=== PATIENT | female | born 1960 | race American Indian/Alaskan Native ===

== ENCOUNTER 2021-11-12 19:41 | Emergency (ER) | payer MEDICARE ==
--- NOTE | 2021-11-12 20:35 | Emergency Department Report ---
ED Psych HPI - General Chief Complaint: Psych Stated Complaint: SI Time Seen by Provider: 11/12/21 20:32 Source: patient, EMS Mode of arrival: Stretcher Limitations: No Limitations - History of Present Illness Initial Comments: Patient is a 61-year-old male who presents emergency room with complaints of suicidal ideations. Patient also complaining of depression. Patient states she has been having thoughts today of killing herself. Patient states her plan was to cut her wrist. Patient states she has attempted overdose in the past with Tylenol. Patient states she had this previously. Patient states she had a long history of depression. Patient states she is taking her medications. Patient denies any physical complaints. Patient denies chest pain. Patient denies shortness of breath. Patient denies abdominal pain. Patient denies fever and chills. Patient denies recent travel. Patient denies recent international travel. Patient denies exposure to the novel coronavirus. Patient denies sick contacts. Patient denies fever and chills. Patient denies cough. Patient denies diarrhea. Patient denies coming in contact with anybody with symptoms of the novel coronavirus. MD Complaint: suicidal ideation, feels depressed -: Sudden Associated Psychiatric Symptoms: depression, suicidal ideation, racing thoughts History of same: Yes Quality: constant Improves With: none Worsens With: none Associated Symptoms: denies other symptoms. denies: confusion, headache, shortness of breath, nausea, vomiting, syncope, insomnia If Self Harm: admits thoughts of, has plan - Related Data Home Medications Medication Instructions Recorded Confirmed Last Taken Metoprolol Tartrate 100 mg PO BID 10/21/14 10/21/14 10/21/14 NIFEdipine [Nifedical Xl] 30 mg PO DAILY 10/21/14 10/21/14 10/21/14 Previous Rx's Medication Instructions Recorded Last Taken Type Ciprofloxacin HCl [Ciprofloxacin 500 mg PO BID 10 Days #20 tab 11/12/21 Unknown Rx TAB] Allergies Allergy/AdvReac Type Severity Reaction Status Date / Time bacitracin Allergy Hives Verified 11/12/21 20:24 [From Neosporin ([id number])] neomycin Allergy Hives Verified 11/12/21 20:24 [From Neosporin ([id number])] polymyxin B Allergy Hives Verified 11/12/21 20:24 [From Neosporin ([id number])] ED Review of Systems ROS: Stated complaint: SI Other details as noted in HPI Constitutional: denies: chills, fever Eyes: denies: eye pain, eye discharge, vision change ENT: denies: ear pain, throat pain Respiratory: denies: cough, shortness of breath, wheezing Cardiovascular: denies: chest pain, palpitations Endocrine: no symptoms reported Gastrointestinal: denies: abdominal pain, nausea, diarrhea Genitourinary: denies: urgency, dysuria, discharge Musculoskeletal: denies: back pain, joint swelling, arthralgia Skin: denies: rash, lesions Neurological: denies: headache, weakness, paresthesias Psychiatric: anxiety, depression, suicidal thoughts Hematological/Lymphatic: denies: easy bleeding, easy bruising ED Past Medical Hx - Past Medical History Previous Medical History?: Yes Hx Hypertension: Yes Hx Arthritis: Yes (general) Hx Asthma: Yes - Surgical History Past Surgical History?: Yes Hx Breast Surgery: Yes (Left) Additional Surgical History: Hysterectomy. Carpal Tunnel. Hernia - Family History Family history: no significant - Social History Smoking Status: Former Smoker Substance Use Type: None - Medications Home Medications: Home Medications Medication Instructions Recorded Confirmed Last Taken Type Metoprolol Tartrate 100 mg PO BID 10/21/14 10/21/14 10/21/14 History NIFEdipine [Nifedical Xl] 30 mg PO DAILY 10/21/14 10/21/14 10/21/14 History Ciprofloxacin HCl [Ciprofloxacin 500 mg PO BID 10 Days #20 tab 11/12/21 Unknown Rx TAB] ED Physical Exam - General Limitations: Physical Limitation General appearance: alert, in no apparent distress - Head Head exam: Present: atraumatic, normocephalic - Eye Eye exam: Present: normal appearance - ENT ENT exam: Present: mucous membranes moist - Neck Neck exam: Present: normal inspection - Respiratory Respiratory exam: Present: normal lung sounds bilaterally. Absent: respiratory distress - Cardiovascular Cardiovascular Exam: Present: regular rate, normal rhythm. Absent: systolic murmur, diastolic murmur, rubs, gallop - GI/Abdominal GI/Abdominal exam: Present: soft, normal bowel sounds - Extremities Exam Extremities exam: Present: normal inspection - Back Exam Back exam: Present: normal inspection - Neurological Exam Neurological exam: Present: alert, oriented X3, CN II-XII intact - Psychiatric Psychiatric exam: Present: depressed, flat affect, suicidal ideation - Skin Skin exam: Present: warm, dry, intact, normal color. Absent: rash ED Course Vital Signs 11/12/21 20:15 Temperature 99 F Pulse Rate 88 Respiratory 18 Rate Blood Pressure 118/72 O2 Sat by Pulse 99 Oximetry - Reevaluation(s) Reevaluation #1: Patient is medically cleared. Patient will remain in the ER as an ER hold until the patient is cleared by our psychiatry team. Patient placed on a ER hold. I discussed all results and clinical findings with patient. I discussed plan of care with patient. Patient agrees with plan of care. 11/12/21 23:50 Patient placed on a 1013 since she still has a plan to hurt herself. 11/13/21 00:03 ED Medical Decision Making - Lab Data Result diagrams: 11/12/21 20:43 11/12/21 20:43 - Medical Decision Making Patient is a 61-year-old female who presents emergency room for suicidal idea tion. Patient states she has had this in the past. Patient has a history of depression. Patient states she was wanting to cut her wrist. Patient placed on a ER hold. Patient had labs done for medical clearance. Patient's labs were essentially unremarkable except for UTI. Patient given injectable Rocephin in the ER. Patient given a prescription for Cipro for discharge. Patient remained in the ER as a ER hold until the patient is cleared from a psychiatric standpoint by our psychiatry team. Patient's final disposition will come from our psychiatry team. - Differential Diagnosis , depression, suicidal ideations Critical care attestation.: If time is entered above; I have spent that time in minutes in the direct care of this critically ill patient, excluding procedure time. ED Disposition Clinical Impression: Suicidal ideations Urinary tract infection Qualifiers: Urinary tract infection type: acute cystitis Hematuria presence: with hematuria Qualified Code(s): N30.01 - Acute cystitis with hematuria Depression Qualifiers: Depression Type: other depression Qualified Code(s): F32.89 - Other specified depressive episodes Disposition: 30 STILL A PATIENT Is pt being admited?: No Does the pt Need Aspirin: No Condition: Stable Instructions: Antibiotic Medicine, Adult, [id number], Urinary Tract Infection, Adult Prescriptions: Ciprofloxacin HCl [Ciprofloxacin TAB] 500 mg PO BID 10 Days #20 tab Referrals: NUZHAT RAY MD [Primary Care Provider] - 2-3 Days Time of Disposition: 23:49
[2021-11-12 21:16] LABS: Basophils % (Auto) 0.4 % (0.0-1.8); Eosinophils # (Auto) 0.1 K/mm3 (0.0-0.4); Eosinophils % (Auto) 1.2 % (0.0-4.3); Hematocrit 33.5 % (30.3-42.9); Lymphocytes # (Auto) 1.9 K/mm3 (1.2-5.4); Mean Corpuscular HGB Conc 33 % (30-34); Mean Corpuscular Volume 96 fl (79-97); Monocytes # (Auto) 0.5 K/mm3 (0.0-0.8); Monocytes % (Auto) 6.1 % (0.0-7.3); Platelet Count 385 K/mm3 (140-440); Red Blood Count 3.47 M/mm3 (3.65-5.03); Red Cell Distribution Width 14.5 % (13.2-15.2)
[2021-11-12 21:33] LABS: BUN/Creatinine Ratio 10; Blood Urea Nitrogen 8 mg/dL (7-17); Calcium 9.1 mg/dL (8.4-10.2); Hemolysis Index 12
[2021-11-12 22:44] LABS: Amphetamine Screen,Urine PRESUMPTIVE NEGATIVE; Benzodiazepines Screen,Urine PRESUMPTIVE NEGATIVE; Cannabinoid Screen,Urine PRESUMPTIVE NEGATIVE; Cocaine Screen,Urine PRESUMPTIVE NEGATIVE; Methadone Screen,Urine PRESUMPTIVE NEGATIVE; Opiate Screen,Urine PRESUMPTIVE NEGATIVE
[2021-11-12 22:46] LABS: Bilirubin,Urine NEG (Negative); Blood,Urine SM (Negative); Color,Urine Yellow (Yellow); Mucus,Urine FEW /HPF; Protein,Urine <15 mg/dL mg/dL (Negative); Urobilinogen,Urine < 2.0 mg/dL (<2.0)
[2021-11-12] MEDS ORDERED: LIDOCAINE-MPF (1%) 10 MG/1 ML VIAL 5 ML INFILTRATI ONE (23:47)
--- NOTE | 2021-11-13 13:40 | Consultation ---
History of Present Illness - Reason for Consult Consult date: 11/13/21 Reason for consult: MHE - Chief Complaint Chief complaint: Depressed and suicidal - History of Present Psychiatric Illness Patient was seen by me this morning. Her ED note was reviewed. Patient continues to endorse feeling depressed and actively suicidal with a plan to cut her wrist or overdose on medications. 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 Medications and Allergies Allergies Allergy/AdvReac Type Severity Reaction Status Date / Time bacitracin Allergy Hives Verified 11/12/21 20:24 [From Neosporin ([id number])] neomycin Allergy Hives Verified 11/12/21 20:24 [From Neosporin ([id number])] polymyxin B Allergy Hives Verified 11/12/21 20:24 [From Neosporin ([id number])] Home Medications Medication Instructions Recorded Confirmed Last Taken Type Metoprolol Tartrate 100 mg PO BID 10/21/14 10/21/14 10/21/14 History NIFEdipine [Nifedical Xl] 30 mg PO DAILY 10/21/14 10/21/14 10/21/14 History Ciprofloxacin HCl [Ciprofloxacin 500 mg PO BID 10 Days #20 tab 11/12/21 Unknown Rx TAB] Mental Status Exam - Vital signs Last Vital Signs Temp 98.1 F 11/13/21 08:38 Pulse 58 L 11/13/21 08:38 Resp 16 11/13/21 08:38 BP 121/60 11/13/21 08:38 Pulse Ox 100 11/13/21 08:38 Results Result Diagrams: 11/12/21 20:43 11/12/21 20:43 Abnormal lab results 11/12/21 11/12/21 11/12/21 Range/Units 20:43 20:43 20:43 RBC (3.65-5.03) M/mm3 Potassium 3.2 L (3.6-5.0) mmol/L Carbon Dioxide 31 H (22-30) mmol/L Urine WBC (Auto) (0.0-6.0) /HPF Salicylates < 0.3 L (2.8-20.0) mg/dL Acetaminophen 5.0 L (10.0-30.0) ug/mL 11/12/21 11/12/21 Range/Units 20:43 Unknown RBC 3.47 L (3.65-5.03) M/mm3 Potassium (3.6-5.0) mmol/L Carbon Dioxide (22-30) mmol/L Urine WBC (Auto) 60.0 H (0.0-6.0) /HPF Salicylates (2.8-20.0) mg/dL Acetaminophen (10.0-30.0) ug/mL All other labs normal. Assessment and Plan - Psychiatric problem (1) MDD (major depressive disorder), recurrent severe, without psychosis Current Visit: Yes Status: Acute
[2021-11-13] MEDS ORDERED: CITALOPRAM 20 MG TAB PO ONE (13:41)
[2021-11-14 01:31] LABS: Blood Urea Nitrogen 6 mg/dL (7-17); Calcium 9.2 mg/dL (8.4-10.2); Hemolysis Index 4
[2021-11-14 02:07] LABS: BUN/Creatinine Ratio 10
[2021-11-14] MEDS ORDERED: MAGNESIUM OXIDE 400 MG TAB PO STA (07:16)
[2021-11-14] MEDS ORDERED: POTASSIUM CHLORIDE ER 20 MEQ TAB PO ONE (07:16)
--- NOTE | 2021-11-14 07:22 | Event Note ---
Date: 11/14/21 The patient is seen and examined. She is awake and moving 4 extremities. She is in no respiratory distress. Laboratory studies and vital signs are reviewed and appreciated. A urinalysis demonstrated pyuria without bacteriuria. Urine culture is negative. She has made no endorsement of irritative or obstructive urinary symptoms. Would not initiate antibiotics for pyuria without bacteriuria, especially with negative culture, and no endorsement of irritative or obstructive urinary symptoms. She is found to be hypokalemic. It appears that her potassium has not been repleted. We will start potassium and magnesium supplementation empirically. Have requested magnesium level. Have also requested that nursing team reconcile home medications. Patient was deemed medically suitable for psychiatric placement and disposition on her initial ER evaluation. She remains a suitable for psychiatric disposition and placement at this time. Vital Signs 11/12/21 11/13/21 11/13/21 20:15 08:38 19:30 Temperature 99 F 98.1 F 98.6 F Pulse Rate 88 58 L 76 Respiratory 18 16 18 Rate Blood Pressure 118/72 Blood Pressure 121/60 128/78 [Right] O2 Sat by Pulse 99 100 100 Oximetry
[2021-11-14] MEDS: MAGNESIUM OXIDE 400 MG TAB PO SCH (10:07)
[2021-11-14] MEDS: POTASSIUM CHLORIDE ER 20 MEQ TAB PO SCH (10:07)
[2021-11-14 15:36] LABS: Blood Urea Nitrogen 7 mg/dL (7-17); Calcium 9.1 mg/dL (8.4-10.2); Hemolysis Index 4
[2021-11-14 16:00] LABS: BUN/Creatinine Ratio 10
[2021-11-15] MEDS ORDERED: MELATONIN 5 MG TAB PO PRN (00:15)
--- NOTE | 2021-11-15 11:26 | Event Note ---
Date: 11/15/21 No overnight issues. Vital sign reviewed and is unremarkable. Patient was denied yesterday from [place] due to patient being nonambulatory. [facility] is still working on placing the patient.
--- NOTE | 2021-11-15 14:16 | Progress Note ---
Subjective - Reason for Consult Consult date: 11/15/21 Reason for consult: MHE - Chief Complaint Chief complaint: History of Present Illness: Patient is a 61-year-old male who presents emergency room with complaints of suicidal ideations. Patient also complaining of depression. Patient states she has been having thoughts today of killing herself. Patient states her plan was to cut her wrist. Patient states she has attempted overdose in the past with Tylenol. Patient states she had this previously. Patient states she had a long history of depression. Patient states she is taking her medications. Patient denies any physical complaints. Patient denies chest pain. Patient denies shortness of breath. Patient denies abdominal pain. Patient denies fever and chills. Progress: 11/15/21:Patient seen by me today. She continues to report feeling depressed and suicidal. Mental Status Exam - Vital signs Last Vital Signs Temp 97.9 F 11/15/21 08:13 Pulse 78 11/15/21 08:13 Resp 20 11/15/21 08:13 BP 121/64 11/15/21 08:13 Pulse Ox 97 11/15/21 08:14 - Exam Orientation: time, place, person Affect: depressed Mood: hopeless, congruent with affect Thought Process: Intact Perceptions: none Speech: minimal response Motor activity: lethargic Level of consciousness: alert Sleep Symptoms: Difficulty Falling Asleep Appetite: decreased Interaction: cooperative Assessment and Plan - Patient Problems (1) MDD (major depressive disorder), recurrent severe, without psychosis Current Visit: Yes Status: Acute 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
[2021-11-15] MEDS: MAGNESIUM OXIDE 400 MG TAB PO SCH ×2 (14:39→15:50)
[2021-11-15] MEDS: POTASSIUM CHLORIDE ER 20 MEQ TAB PO SCH ×2 (14:39→15:50)
[2021-11-15] MEDS ORDERED: levETIRAcetam 500 MG TAB PO ONE (15:47)
[2021-11-15 17:44] VITALS: BP 142/78
== END 2021-11-15 17:45 ==
LOC: ED 19:41
DX: R45.851 Suicidal ideations (principal); Z20.822 Contact with and (suspected) exposure to COVID-19; N39.0 Urinary tract infection, site not specified; F32.A Depression, unspecified; I10 Essential (primary) hypertension; M19.90 Unspecified osteoarthritis, unspecified site; J45.909 Unspecified asthma, uncomplicated; Z98.890 Other specified postprocedural states; Z88.6 Allergy status to analgesic agent; Z88.1 Allergy status to other antibiotic agents; Z79.899 Other long term (current) drug therapy; Z87.891 Personal history of nicotine dependence
CPT/HCPCS: 36415; 80048; 80307; 81001; 83735; 85025; 87086; 96372; 99285; J0696; J3490; U0003; 80320; G0480